=== PATIENT | female | born 1960 | race Caucasian/White ===

== ENCOUNTER 2023-07-23 11:22 | Emergency (ER) | payer BC ==
[~2023-07-23] VITALS: Ht 157.5 cm; Wt 66.2 kg
[~2023-07-23 11:22] MED LIST: NAPR500 PO; PHENY100ER PO; RXTRAM50 PO; TRAM50 PO
[2023-07-23] MEDS ORDERED: OMEP20ER PO (11:57)
[2023-07-23] MEDS ORDERED: OMEPRAZOLE20 M1 PO (11:57)
[2023-07-23 12:16] LABS: BASOPHILS ABSOLUTE AUTO 0.02 K/mm3 (0.00-0.23); BASOPHILS PERCENT AUTO 0 % (0-2); EOSINOPHILS ABSOLUTE AUTO 0.04 K/mm3 (0.00-0.68); EOSINOPHILS PERCENT AUTO 0 % (0-6); Hematocrit 36.2 % (33.0-51.0); IMMATURE GRAN ABSOLUTE AUTO 0.02 K/mm3 (0.00-0.10); IMMATURE GRAN PERCENT AUTO 0 % (0-1); LYMPHOCYTES ABSOLUTE AUTO 0.69 K/mm3 (0.84-5.20); LYMPHOCYTES PERCENT AUTO 7 % (21-46); MONOCYTES ABSOLUTE AUTO 1.17 K/mm3 (0.16-1.47); MONOCYTES PERCENT AUTO 11 % (4-13); Mean Corpuscular HGB 31.7 pg (26.0-34.0); Mean Corpuscular HGB Conc 33.1 g/dL (31.5-36.5); Mean Corpuscular Volume 96 fL (80-100); Mean Platelet Volume 9.7 fL (9.1-12.4); NEUTROPHILS ABSOLUTE AUTO 8.64 K/mm3 (1.96-9.15); NEUTROPHILS PERCENT AUTO 82 % (41-73); Platelet Count 283 K/mm3 (150-400); RDW Coefficient Variation 13.8 % (11.7-14.2); RDW Standard Deviation 48.9 fL (35.1-46.3); Red Blood Cell Count 3.79 M/mm3 (3.80-5.20); White Blood Cell Count 10.58 K/mm3 (4.00-11.30)
[2023-07-23 12:53] LABS: Albumin, Blood 3.7 g/dL (3.4-5.0); Albumin/Globulin Ratio 0.9 (0.8-1.8); Bilirubin, Total 0.5 mg/dL (0.1-1.0); Bun/Creatinine Ratio 13.7 (12.0-20.0); Calcium, Blood 9.1 mg/dL (8.5-10.1); Creatinine, Blood 0.8 mg/dL (0.40-1.00); Potassium, Blood 3.8 mmol/L (3.5-5.5); Total Protein, Blood 7.7 g/dL (6.4-8.2)
[2023-07-23] MEDS ORDERED: CEPH500 PO (13:56)
[2023-07-23] MEDS ORDERED: Ultram50 MG PO (13:56)
[2023-07-23 14:20] VITALS: BP 131/49
== END 2023-07-23 14:17 | disposition home or self-care (01) ==
LOC: ER 11:22
PROVIDERS: Physician Assistant
DX: L03.314 Cellulitis of groin (principal); G40.909 Epilepsy, unspecified, not intractable, without status epilepticus; Z79.899 Other long term (current) drug therapy
CPT/HCPCS: 72193; 80053; 85025; 96365-59; 99284-25; J0690; Q9967

== ENCOUNTER → 2024-11-25 | Outpatient (CLI) | payer BC ==
[~2024-11-25] MED LIST changes: +CEPH500 PO; +OMEP20ER PO; +OMEPRAZOLE20 M1 PO; +Ultram50 MG PO
[2024-11-28 13:14] LABS: HPV HIGH RISK BY TMA Not Detected; HPV SOURCE Cervical
== END ==
LOC: LAB 11:52 → LAB SHORT 11:52
PROVIDERS: Family Medicine
DX: Z12.4 Encounter for screening for malignant neoplasm of cervix (principal)
CPT/HCPCS: 87624; G0123

== ENCOUNTER → 2025-04-30 | Outpatient (CLI) | payer BC | LOC: LAB 08:05 → LAB SHORT 08:05 | DX: L60.2 Onychogryphosis (principal); B35.1 Tinea unguium | CPT/HCPCS: 88304; 88312 ==